=== PATIENT | female | born 1975 | race Caucasian/White ===

== ENCOUNTER → 2017-01-24 | Outpatient (CLI) | payer OTHER ==
[~2017-01-24] MED LIST: NIFE-95 PO; PREG1CAP28 PO
[2017-01-24 16:05] LABS: URINE APPEARANCE CLEAR (CLEAR); URINE BILIRUBIN NEG (NEG); URINE COLOR YELLOW; URINE NITRITE NEG (NEG); URINE SPECIFIC GRAVITY 1.012 (1.000-1.030); UROBILINOGEN NEG (NEG); ZZUR CULT IF INDIC CLEAN CATCH NO
[2017-01-24 16:07] LABS: MANUAL MICROSCOPIC REQUIRED? NO; REVIEW REQ? NO
== END | disposition home or self-care (01) ==
LOC: C.LAB 15:25
PROVIDERS: ATTEND Internal Medicine
DX: R10.9 Unspecified abdominal pain (principal); R31.0 Gross hematuria

== ENCOUNTER → 2017-01-30 | Outpatient (CLI) | payer OTHER ==
--- NOTE | 2017-01-30 08:51 | DIAGNOSTIC IMAGING REPORT ---
(RENAL)RETROPERITON COMP CLINICAL HISTORY: 41 years-old Female presenting with ALCON HEMATURIA. TECHNIQUE: Real-time grayscale and limited color Doppler ultrasound imaging of the kidneys and bladder was performed. COMPARISON: CT from 04/01/2016. FINDINGS: Right kidney: Normal echogenicity. Right kidney measures 10.8 cm. No hydronephrosis. 0.2 cm hyperechogenic focus of the lower pole with twinkling artifact consistent with calculus. Normal perfusion. Left kidney: Normal echogenicity. Left kidney measures 11.5 cm. No hydronephrosis. 2 separate 0.3 cm hyperechogenic foci, at least one of which has twinkling artifact, likely indicating calculus. Normal perfusion. Bladder: No bladder wall thickening. Bilateral ureteral jets present. Other: None. IMPRESSION: 1. Bilateral nephrolithiasis suspected. No hydronephrosis. Electronically signed by: David Caballero M.D. 01/30/2017 8:50 AM Dictated Date/Time: 01/30/2017 8:46 AM
== END | disposition home or self-care (01) ==
LOC: C.ULTRBC 07:31
PROVIDERS: ATTEND Internal Medicine
DX: R31.0 Gross hematuria (principal); N23 Unspecified renal colic; N20.0 Calculus of kidney

== ENCOUNTER → 2017-06-10 | Outpatient (CLI) | payer OTHER ==
[~2017-06-10] MED LIST changes: +GADAVIST IV PRN; -NIFE-95 PO; +PRCSR30 PO
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
== END | disposition home or self-care (01) ==
LOC: C.MRI 17:01
PROVIDERS: ATTEND Psychiatry & Neurology Neurology
DX: M46.02 Spinal enthesopathy, cervical region (principal); M50.20 Other cervical disc displacement, unspecified cervical region; M48.00 Spinal stenosis, site unspecified; M47.812 Spondylosis without myelopathy or radiculopathy, cervical region

== ENCOUNTER → 2017-07-23 | Outpatient (CLI) | payer OTHER ==
[~2017-07-23] MED LIST changes: -GADAVIST IV PRN; +NIFE-64 PO; -PRCSR30 PO
--- NOTE | 2017-07-23 18:12 | DIAGNOSTIC IMAGING REPORT ---
LUMBAR SPINE W/O CONTRAST CLINICAL HISTORY: 42 years-old Female with M54.16 Lumbar [id number]. Bilateral leg and arm pain with numbness and tingling of the extremities. History of fibromyalgia. COMPARISON: CT abdomen and pelvis 04/01/2016. TECHNIQUE: Multiplanar, multi sequence MRI of the lumbar spine was performed without intravenous contrast. FINDINGS: The large [id number] rotating field assembler localizer images demonstrate no gross abnormality of the abdomen or pelvis. Cystic changes are seen within the distribution of the ovaries, largest on the left measuring up to 2.6 cm, suggesting ovarian follicles. The uterus is anteflexed. Conus medullaris terminates at the L1-L2 level. The cauda equina appears unremarkable. Signal within the cord is within normal limits. No acute fracture, subluxation, focal bone marrow edema or marrow replacing process identified. T12-L1: No central canal or neural foraminal stenosis. L1-L2: No central canal or neural foraminal stenosis. L2-L3: No central canal or neural foraminal stenosis. L3-L4: No central canal or neuroforaminal narrowing. L4-L5: Disc desiccation with mild intervertebral disc space narrowing and circumferential annular disc bulge with posterior annular fissure. Mild ligamentum flavum thickening with mild left facet arthropathy and trace left facet effusion. There is flattening of the ventral thecal sac with mild inferior foraminal narrowing bilaterally. L5-S1: Mild ligamentum flavum thickening with small broad-based posterior disc bulge flattens the ventral thecal sac. The left foramen is patent. Mild right foraminal narrowing. IMPRESSION: 1. Disc desiccation with mild intervertebral disc space narrowing and circumferential annular disc bulge with posterior annular fissure at L4-L5 contributes to mild inferior foraminal narrowing bilaterally. 2. At L5-S1, mild ligamentum flavum thickening with small posterior disc bulge flattens the ventral thecal sac, causing mild right foraminal narrowing. The above report was generated using voice recognition software. It may contain grammatical, syntax or spelling errors. Dictated: 07/23/2017 5:34 PM Transcribed: 07/23/2017 6:12 PM [email or web address] Electronically signed by: Jayro Quinones M.D. 07/23/2017 6:16 PM Dictated Date/Time: 07/23/2017 5:34 PM
== END | disposition home or self-care (01) ==
LOC: C.MRIBC 16:43
PROVIDERS: ATTEND Psychiatry & Neurology Neurology
DX: M54.16 Radiculopathy, lumbar region (principal); M51.26 Other intervertebral disc displacement, lumbar region; M48.07 Spinal stenosis, lumbosacral region

== ENCOUNTER → 2017-09-28 | Outpatient (CLI) | payer OTHER ==
[~2017-09-28] MED LIST changes: +GADAVIST IV PRN
--- NOTE | 2017-09-28 12:18 | DIAGNOSTIC IMAGING REPORT ---
Brain MRI WITH AND WITHOUT CONTRAST HISTORY: Headache. Memory loss. Confusion. R20.0 Numbness and [id number] Cognitive [id number] Headache TECHNIQUE: Multiplanar multisequence MRI of the brain was performed both before and after the intravenous administration of contrast. COMPARISON STUDY: Brain MRI 09/04/2015. FINDINGS: There are no areas of restricted diffusion to suggest acute infarction. The midline structures are intact. The paranasal sinuses are clear. The mastoid air cells are clear. The ventricles and sulci are within normal limits for age. There is no mass, hematoma, midline shift. The major vascular flow-voids at the skull base are well maintained. Postcontrast sequences show no areas of abnormal enhancement. IMPRESSION: No acute intracranial abnormality. Electronically signed by: Samuel Ruiz M.D. 09/28/2017 12:16 PM Dictated Date/Time: 09/28/2017 12:07 PM
== END | disposition home or self-care (01) ==
LOC: C.MRI 10:44
PROVIDERS: ATTEND Psychiatry & Neurology Neurology
DX: F09 Unspecified mental disorder due to known physiological condition (principal); R20.0 Anesthesia of skin; R20.2 Paresthesia of skin; R51 Headache

== ENCOUNTER → 2018-02-05 | Outpatient (CLI) | payer OTHER ==
[~2018-02-05] MED LIST changes: +CYM/30 PO; +DULO60CA44 PO; -GADAVIST IV PRN; -NIFE-64 PO; +PHEN-876 PO; -PREG1CAP28 PO; +SULF800T23 PO; +VERA120C2 PO
== END | disposition home or self-care (01) ==
LOC: C.LAB 10:30
PROVIDERS: ATTEND Physician Assistant
DX: Z00.00 Encounter for general adult medical examination without abnormal findings (principal)